=== PATIENT | male | born 1980 | race Hispanic/Latino ===

== ENCOUNTER 2020-04-08 13:14 | Emergency (ER) | payer BC ==
[~2020-04-08] VITALS: Ht 165.1 cm; Wt 122.5 kg
--- NOTE | 2020-04-08 13:51 | Emergency Department Note ---
History of Present Illnes History of Present Illness Chief Complaint: foot pain History of Present Illness This is a morbidly obese 40 year old male, with no significant past medical history, who presents for evaluation of left Achilles tendon pain/injury. Patient states that he was outside playing soccer with his kids yesterday, when he sprinted and developed a pain in the region of his left Achilles tendon. Since that time, he has had pain with weightbearing on the left leg/ foot, with mild edema. Patient has taken for pain. Arrival Mode: Car Chronic Care Nurse Required: No Onset (how long ago): day(s) (1) Location: left achilles tendon Quality: sharp, stabbin pain Radiation: Reports non-radiation Severity: moderate Onset quality: sudden Duration (how long): day(s) (1) Timing of current episode: constant Progression: waxing and waning Chronicity: new Relieving factors: none Exacerbating factors: none Associated symptoms: Reports denies other symptoms Treatments prior to arrival: NSAID Past Medical/Family History Physician Review I have reviewed the patient's past medical and family history. Any updates have been documented here. Past Medical History Recent Fever: No Clinical Suspicion of Infectio: No New/Unexplained Change in Ment: No Past Medical History: None Past Surgical History: None Social History Smoking Cessation: Current some day smoker Counseling Performed: No Alcohol Use: Occasional Any Illegal Drug Use: No TB Exposure/Symptoms: No Physically hurt or threatened: No Family History Family history of heart diseas: No Other Any Pre-Existing Lines (PICC,: No Is patient up to date on immun: Yes Review of Systems Review of Systems Constitutional: Reports no symptoms EENTM: Reports no symptoms Cardiovascular: Reports no symptoms Musculoskeletal: Reports muscle pain (pain in the left Achilles tendon, at the insertion point of the foot, no crepitus, redness, or warmth.) Integumentary: Reports no symptoms Neurological: Denies no symptoms, Denies as per HPI, Denies headache, Denies numbness, Denies paresthesia, Denies pre-existing deficit, Denies seizure, Denies tingling, Denies tremors, Denies weakness, Denies other Review of other systems: All other systems negative Physical Exam Related Data Triage Vital Signs Vital Signs Date Time Temp Pulse Resp B/P (MAP) Pulse Ox O2 Delivery O2 Flow Rate FiO2 04/08/20 13:42 98.2 88 18 106/70 99 Vital signs reviewed: Yes Physical Exam CONSTITUTIONAL Constitutional: Present well-developed, Present well-nourished HENT HENT: Present normocephalic, Present atraumatic, Present oropharynx clear/moist, Present nose normal HENT L/R: Present left ext ear normal, Present right ext ear normal EYES Eyes: Reports PERRL, Reports conjunctivae normal NECK Neck: Present ROM normal PULMONARY Pulmonary: Present effort normal, Present breath sounds normal CARDIOVASCULAR Cardiovascular: Present regular rhythm, Present heart sounds normal, Present capillary refill normal, Present normal rate GASTROINTESTINAL GENITOURINARY SKIN MUSCULOSKELETAL Musculoskeletal: Present ROM normal, Present tenderness (mild edema and tenderness to palpation of the left Achilles insertion point, no crepitus), Present swelling NEUROLOGICAL PSYCHOLOGICAL Results Imaging Imaging results reviewed: Yes Impressions [place] [id number] Patient Name: JALIL FRAZIER MR #: [id number] : 1980 Age/Sex: 40/M Req #: [id number] Adm Physician: Ordered by: CHINO STEIN MD Report #: [id number] Location: [facility] Room/Bed: Procedure: [id number] HOPD/ANKLE 2 VIEW LEFT - HOPD Exam Date: 04/08/20 Exam Time: 1410 REPORT STATUS: Signed LEFT ANKLE X-RAY - 2 VIEWS HISTORY: ^sprinted and felt a "pop and pain" in left Ellen's tendon ^[id number] ^1410 COMPARISON: None available. FINDINGS: Bones: No acute displaced fracture. Osseous alignment is within normal limits. Joints: The joint spaces are well-maintained. Soft tissues: Soft tissue swelling surrounding the medial malleolus. Diffuse fat stranding with thinning of the insertion of the Achilles tendon. IMPRESSION: Radiographic findings concerning for Achilles tendon insertion injury. Recommend orthopedic consultation. No acute bony fractures. Signed by: Dr. Kendra Burgess M.D. on 04/08/2020 3:06 PM Dictated By: KENDRA BURGESS MD Transcribed By: JANICE on 04/08/20 1506 COPY TO: CHINO STEIN MD~ Assessment & Plan Medical Decision Making MDM - Nonweightbearing on the left leg, until seen by orthopedics. - Elevate the left lower extremity to the level of the heart, as much as possible to help with pain and swelling. - Recommend ibuprofen 200 mg3 tablets every 6 hours as needed for pain and inflammation. - Apply ice to the left ankle and heel frequently, to help the pain and swelling - Follow next week with orthopedics, for further evaluation and management of a probable Achilles tendon tear versus rupture. Assessment & Plan Final Impression: (1) Achilles tendon tear (2) Foot pain, left Depart Disposition: HOME, SELF-CARE Last Vital Signs Date Time Temp Pulse Resp B/P (MAP) Pulse Ox O2 Delivery O2 Flow Rate FiO2 04/08/20 13:42 98.2 88 18 106/70 99 CHINO STEIN MD Apr 08, 2020 13:51
--- NOTE | 2020-04-08 15:09 | Diagnostic Imaging Report ---
LEFT ANKLE X-RAY - 2 VIEWS HISTORY: ^sprinted and felt a "pop and pain" in left Ellen's tendon ^[id number] ^1410 COMPARISON: None available. FINDINGS: Bones: No acute displaced fracture. Osseous alignment is within normal limits. Joints: The joint spaces are well-maintained. Soft tissues: Soft tissue swelling surrounding the medial malleolus. Diffuse fat stranding with thinning of the insertion of the Achilles tendon. IMPRESSION: Radiographic findings concerning for Achilles tendon insertion injury. Recommend orthopedic consultation. No acute bony fractures. Signed by: Dr. Cristal Barnhart M.D. on 04/08/2020 3:06 PM
== END 2020-04-08 16:31 | disposition home or self-care (01) ==
LOC: FSED 13:59
DX: S86.012A Strain of left Achilles tendon, initial encounter (principal); M79.672 Pain in left foot; Y93.66 Activity, soccer; Y92.007 Garden or yard of unspecified non-institutional (private) residence as the place of occurrence of the external cause; F17.210 Nicotine dependence, cigarettes, uncomplicated
CPT/HCPCS: 99283